=== PATIENT | male | born 1965 | race Caucasian/White ===

== ENCOUNTER 2017-05-01 06:27 | Day surgery (SDC) | payer MEDICARE, OTHER ==
[2017-05-01] MEDS ORDERED: PROPOFOL 40 ML (08:05)
== END 2017-05-01 10:57 | disposition home or self-care (01) ==
LOC: GIL 06:27
DX: I85.00 Esophageal varices without bleeding (principal)
CPT/HCPCS: 43244

== ENCOUNTER 2018-01-18 08:00 | Day surgery (SDC) | payer MEDICARE, OTHER ==
[2018-01-18] MEDS ORDERED: PROPOFOL 20 ML (09:22)
== END 2018-01-18 10:25 | disposition home or self-care (01) ==
LOC: GIL 08:00
DX: I85.00 Esophageal varices without bleeding (principal)
CPT/HCPCS: 43244; 88305; 88312

== ENCOUNTER 2018-12-13 05:56 | Day surgery (SDC) | payer MEDICARE, OTHER ==
[2018-12-13] MEDS ORDERED: PROPOFOL 40 ML (07:40)
[2018-12-13] MEDS ORDERED: LIDOCAINE 100 MG SYRINGE (07:40)
== END 2018-12-13 16:37 | disposition home or self-care (01) ==
LOC: GIL 05:56 → SDS 05:56 → GIL 05:56
DX: I85.00 Esophageal varices without bleeding (principal); K29.70 Gastritis, unspecified, without bleeding
CPT/HCPCS: 43244; 88305; 88312